=== PATIENT | female | born 1960 | race Caucasian/White ===

== ENCOUNTER 2017-11-17 07:21 | Observation (INO) | payer BC ==
[2017-11-09 13:16] LABS: BASOPHILS % (AUTO) 0.2 % (0-1); EOSINOPHILS # (AUTO) 0.1 X10'3 (0-0.9); EOSINOPHILS % (AUTO) 1.2 % (0-6); LYMPHOCYTES # (AUTO) 1.6 X10'3 (1.1-4.8); LYMPHOCYTES % (AUTO) 16.3 % (21-51); MEAN CORPUSCULAR HEMOGLOBIN 32.1 PG (27.0-31.0); MEAN CORPUSCULAR HGB CONC 34.2 % (33.0-36.5); MEAN PLATELET VOLUME 7.9 FL (7.4-10.4); MONOCYTES # (AUTO) 0.4 X10'3 (0-0.9); MONOCYTES % (AUTO) 3.8 % (2-12); NEUTROPHILS # (AUTO) 7.6 X10'3 (1.8-7.7); NEUTROPHILS % (AUTO) 78.5 % (42-75); PRE OP HEMATOCRIT 41.2 % (35.0-45.0); PRE OP HEMOGLOBIN 14.1 g/dL (12.0-16.0); PRE OP PLATELET COUNT 294 X10'3 (140-440); RED BLOOD COUNT 4.38 X10'6 (4.20-5.60); RED CELL DISTRIBUTION WIDTH 13.2 % (11.5-14.5)
[2017-11-09 13:27] LABS: PRE OP PROTIME 10.2 SECONDS (9.0-12.0)
[2017-11-09 13:31] LABS: ALBUMIN 4.3 G/DL (3.4-5.0); ALBUMIN/GLOBULIN RATIO 1.3 (1.1-1.5); ALKALINE PHOSPHATASE 87 IU/L (46-116); BLOOD UREA NITROGEN 12 MG/DL (7-18); BUN/CREATININE RATIO 13.6 (6.6-38.0); CALCIUM 9.8 MG/DL (8.5-10.1); CHLORIDE 102 MMOL/L (99-107); CREATININE 0.88 MG/DL (0.40-0.90); PRE OP ALT 20 U/L (30-65); PRE OP ANION GAP 9 (8-16); PRE OP AST 13 U/L (10-37); PRE OP BILIRUB, TOTAL 0.5 MG/DL (0.0-1.0); PRE OP GLUCOSE 97 MG/DL (70-104); PRE OP POTASSIUM 3.7 MMOL/L (3.4-5.1); PRE OP SODIUM 139 MMOL/L (135-145); TOTAL CARBON DIOXIDE 27.8 MMOL/L (24-32); TOTAL PROTEIN 7.5 G/DL (6.4-8.2); eGFR 66 ML/MIN
[2017-11-17] VITALS (19 sets, daily range): BP systolic 89–153; BP diastolic 55–95
[~2017-11-17] VITALS: Ht 165.1 cm; Wt 61.0 kg
[~2017-11-17 07:21] MED LIST: NO HOME MEDS; VANCOMYCIN INJ 1000 MG in NORMAL SALINE 250ml IV.SOLN IV ONE; albuterol 2.5 MG/3 ML nebule NEB ONE; clindamycin-Cleocin 900mg/D5W 50 ML IV ONE; famotidine 20mg tablet PO ONE
[2017-11-17] MEDS: ringers solution, lacted 1,000 ML IV SCH ×3 (08:20→15:07)
[2017-11-17] MEDS ORDERED: BUPIVAcaine/PF 2.5mg/ml (0.25%) 10ml vial ONE (09:19)
[2017-11-17] MEDS ORDERED: ondansetron/PF 4mg/2ml inj ONE (09:28)
[2017-11-17] MEDS ORDERED: neostigmine methylsulfate 1 MG/ML 10ml vial ONE (09:28)
[2017-11-17] MEDS ORDERED: sevoflurane 250ml liquid IH ONE (09:28)
[2017-11-17] MEDS ORDERED: dexamethasone sod phosphate 10mg/ml inj ONE (09:28)
[2017-11-17] MEDS ORDERED: fentaNYL/PF 50MCG/1 ML 2ML syringe ONE (09:36)
[2017-11-17] MEDS ORDERED: midazolam 2 mg/2 ml injection ONE (09:36)
[2017-11-17] MEDS ORDERED: propofol inj 20 ML IV ONE (09:37)
[2017-11-17] MEDS ORDERED: LIDOcaine 2% (20mg/ml) 5ml vial ONE (09:37)
[2017-11-17] MEDS ORDERED: morphine 10mg/ml inj. ONE ×2 (10:30)
[2017-11-17] MEDS ORDERED: ringers solution, lacted 1,000 ML IV SCH (10:32)
[2017-11-17] MEDS ORDERED: fentaNYL/PF 50MCG/1 ML 2ML syringe IV PRN ×2 (10:35)
[2017-11-17] MEDS ORDERED: ondansetron/PF 4mg/2ml inj IV PRN ×2 (10:35→12:25)
[2017-11-17] MEDS ORDERED: morphine 4 MG/ML inj SYRINge IV PRN ×2 (10:35)
[2017-11-17] MEDS ORDERED: hydrALAZINE 20mg/ml inj. IV PRN (10:35)
[2017-11-17] MEDS ORDERED: labetalol 20mg/4ml (5mg/ml) syringe IV PRN (10:35)
[2017-11-17] MEDS ORDERED: labetalol 5mg/ml 20ml inj. IV ONE (10:40)
[2017-11-17] MEDS ORDERED: hydrALAZINE 20mg/ml inj. IV ONE (11:49)
[2017-11-17] MEDS ORDERED: acetaminophen 325mg tablet PO PRN (12:25)
[2017-11-17] MEDS ORDERED: HYDROcodone/acetaminophen 10/325mg tab PO PRN (12:25)
[2017-11-17] MEDS ORDERED: magnesium hydroxide 30ml (MOM) UD suspension PO PRN (12:25)
[2017-11-17] MEDS ORDERED: diphenhydrAMINE 25mg capsule PO PRN ×2 (12:25)
[2017-11-17] MEDS ORDERED: bisacodyl 10mg suppository rectal RC PRN (12:25)
[2017-11-17] MEDS ORDERED: HYDROmorphone inj. 0.5 MG/0.5 ML DISP.SYRIN IV PRN (12:25)
[2017-11-17] MEDS: potassium Cl 20mEq in NS 1,000 ML IV SCH (15:17)
[2017-11-17] MEDS: HYDROcodone/acetaminophen 10/325mg tab PO PRN (17:21)
[2017-11-17] MEDS ORDERED: vancomycin/NS 1 GM ADD-VANTAGE 250 ML IV SCH (20:00)
[2017-11-17] MEDS ORDERED: sennosides 8.6mg tablet PO SCH (21:00)
[2017-11-18] MEDS: HYDROcodone/acetaminophen 10/325mg tab PO PRN ×3 (01:12→10:46)
[2017-11-18 02:00] VITALS: BP 133/82
[2017-11-18] MEDS: potassium Cl 20mEq in NS 1,000 ML IV SCH (05:18)
[2017-11-18 06:00] VITALS: BP 106/63
[2017-11-18] MEDS ORDERED: HYDR-3972 PO (08:59)
[2017-11-18 10:00] VITALS: BP 102/65
== END 2017-11-18 12:03 | disposition home or self-care (01) ==
LOC: PAS 07:21 → ORTHO 4S 12:24
PROVIDERS: ADMIT Orthopaedic Surgery; ATTEND Orthopaedic Surgery
DX: M75.102 Unspecified rotator cuff tear or rupture of left shoulder, not specified as traumatic (principal); M19.012 Primary osteoarthritis, left shoulder; M75.22 Bicipital tendinitis, left shoulder
CPT/HCPCS: 23120; 23130; 23412; 36415; 71046; 80053; 85025; 85610; 85730; 93005; 96365; 96376; A4565; A6223; A6253; A6449; C1713; G0378; J0360; J1100; J2001; J2250; J2270; J2405; J2704; J2710; J3010; J3370; J3490; J7120; A7000